=== PATIENT | male | born 1945 ===

== ENCOUNTER 2023-05-14 09:51 | Day surgery (SDC) | payer OTHER ==
[~2023-05-14 09:51] MED LIST: LIPITOR20 MG PO; METFORMIN HCL500 M3 PO; SYNTHROID137 MCG PO; TOPROL XL25 M1 PO
[2023-05-14] MEDS ORDERED: KETO10TA2 PO (12:38)
[2023-05-14] MEDS ORDERED: TYLENOL ARTHRI650 MG PO (12:38)
[2023-05-14] MEDS ORDERED: TRAMADOL HCL50 MG PO (12:38)
[2023-05-14] MEDS ORDERED: MIRALAX17 GM PO (12:38)
== END 2023-05-14 17:30 | disposition home or self-care (01) ==
LOC: CIR.AMB 09:51
PROVIDERS: ATTEND Surgery
DX: K40.90 Unilateral inguinal hernia, without obstruction or gangrene, not specified as recurrent (principal); Z88.6 Allergy status to analgesic agent; Z20.822 Contact with and (suspected) exposure to COVID-19
CPT/HCPCS: 49505; C1781